=== PATIENT | female | born 1950 | race African-American/Black ===

== ENCOUNTER 2017-09-18 07:36 | Emergency (ER) | payer BC, OTHER ==
[2017-09-18] MEDS: MECLIZINE HCL 12.5 MG TABLET. PO (08:00)
[2017-09-18] MEDS: IV NORMAL SALINE 1000ML BAG 1,000 ML IV (08:05)
[2017-09-18 08:14] LABS: ADD MAN DIFF? NO
[2017-09-18 08:17] LABS: BASO # 0.1 x10^3/uL (0.0-0.2); BASO % 1 % (0-3); EOS # 0.2 x10^3/uL (0.0-0.7); EOS % 2 % (0-3); HEMOGLOBIN 13.5 g/dL (12.0-15.5); LYMPH # 3.5 x10^3/uL (1.0-4.8); LYMPH % 42 % (24-48); MEAN CORPUSCULAR HEMOGLOBIN 28 pg (25-35); MEAN CORPUSCULAR HGB CONC 33 g/dL (31-37); MEAN CORPUSCULAR VOLUME 85 fL (79-100); MONO # 0.7 x10^3/uL (0.0-1.1); MONO % 9 % (0-9); NEUT # 3.9 x10^3uL (1.8-7.7); NEUT % 47 % (31-73); PLATELET COUNT 283 x10^3/uL (140-400); RED BLOOD COUNT 4.85 x10^6/uL (3.50-5.40); RED CELL DISTRIBUTION WIDTH 15.1 % (11.5-14.5); WHITE BLOOD COUNT 8.3 x10^3/uL (4.0-11.0)
[2017-09-18 08:25] LABS: ANION GAP 11 (6-14); BLOOD UREA NITROGEN 17 mg/dL (7-20); CALCIUM 9.2 mg/dL (8.5-10.1); CARBON DIOXIDE 23 mmol/L (21-32); CHLORIDE 107 mmol/L (98-107); GFR 67.5; GLUCOSE 115 mg/dL (70-99); SODIUM 141 mmol/L (136-145)
[2017-09-18 08:35] LABS: TROPONINI < 0.017 ng/mL (0.000-0.055)
[2017-09-18 08:40] LABS: THYROID STIM HORMONE (TSH) 2.253 uIU/mL (0.358-3.74)
[2017-09-18 09:23] LABS: BILIRUBIN,URINE NEGATIVE (NEG); CLARITY,URINE CLEAR; COLOR,URINE YELLOW; GLUCOSE,URINE NEGATIVE (NEG); NITRITE,URINE NEGATIVE (NEG); PROTEIN,URINE 100 mg/dL (NEG-TRACE); UROBILINOGEN,URINE 0.2 mg/dL (0.2 mg/dL)
[2017-09-18 09:36] LABS: BACTERIA,URINE MANY /HPF (0-FEW); SQUAMOUS EPITHELIAL CELL,UR MOD /LPF
[2017-09-18] MEDS: ONDANSETRON PF 4 MG/2 ML VIAL. IV (11:26)
[2017-09-18] MEDS: diphenhydrAMINE 50 MG/ML VIAL IVP (11:29)
== END 2017-09-18 12:08 | disposition home or self-care (01) ==
LOC: ER 07:36
DX: R42 Dizziness and giddiness (principal); R11.2 Nausea with vomiting, unspecified; R26.2 Difficulty in walking, not elsewhere classified; E66.9 Obesity, unspecified; Z68.41 Body mass index [BMI] 40.0-44.9, adult; Z90.710 Acquired absence of both cervix and uterus
CPT/HCPCS: 36415; 70450; 71045; 80048; 81001; 84443; 84484; 85025; 93005; 96361; 96374; 96375; 99285-25; J1200; J2405; J7030; J8597